=== PATIENT | male | born 1940 | race Caucasian/White ===

== ENCOUNTER 2022-06-27 09:07 | Inpatient (IN) | payer OTHER ==
[~2022-06-27] VITALS: Ht 157.5 cm; Wt 67.6 kg
[2022-06-27 09:34] VITALS: BP 117/73
--- NOTE | 2022-06-27 09:41 | NUR ---
PT AMBULATED TO ER BED 7 WITH DAUGHTER
--- NOTE | 2022-06-27 10:00 | NUR ---
82YO MALE PT BIB DAUGHTER C/O COUGH , SOB AND HOMERO LOWER EXTREMITY EDEMA X1WEEK. REPORTS SUDDEN ONSET AND CHEST PAIN ON COUGH. MOIST NON PRODUCTIVE PRESENT. HOMERO CLEAR LUNG SOUNDS. NOTES INCREASED SOB WHEN IN SUPINE OR PHYSICAL ACTIVITY. PRESENTS W/ NON PITTING EDEMA HOMERO BELOW KNEE. DENIES N/V/D, FEVER OR CHILLS. AMBULATORY USING CANE. PT AAXO4, NO VISIBLE DISTRESS. DAUGHTER AT BEDSIDE. HX: HTN, BPH, SD () SD
--- NOTE | 2022-06-27 10:14 | NUR ---
pt swabbed for covid(katheryn) and flu. handed to lab
--- NOTE | 2022-06-27 10:25 | NUR ---
US AT BEDSIDE
--- NOTE | 2022-06-27 10:46 | NUR ---
XRAY AT BEDSIDE
[2022-06-27 10:53] LABS: ALBUMIN 2.8 g/dL (3.4-5.0); ANION GAP 9.6 (8-16); ASPARTATE AMINOTRANSFERASE 22 U/L (15-37); CARBON DIOXIDE 29.2 mmol/L (21-32); CHLORIDE 100 mmol/L (98-107); CREATININE 0.8 mg/dL (0.6-1.3); GLUCOSE 78 mg/dL (74-106); SODIUM SERUM 136 mmol/L (136-145); TOTAL BILIRUBIN 1.1 mg/dL (0.0-1.0); UREA NITROGEN, BLOOD 28 mg/dL (7-18)
[2022-06-27 10:55] LABS: POTASSIUM 2.8 mmol/L (3.5-5.1)
[2022-06-27] MEDS ORDERED: POTASSIUM CHLORIDE 10 MEQ TABER PO ONE (11:20)
[2022-06-27] MEDS ORDERED: POTASSIUM CHL 40 MEQ/ D5-1/2NS 1,000 ML IV ONE (11:20)
[2022-06-27] MEDS ORDERED: MAG SULF 2000 MG/WATER PREMIX 50 ML IV ONE (11:20)
[2022-06-27] MEDS ORDERED: FUROSEMIDE 40 MG/4 ML VIAL IVP ONE (11:20)
[2022-06-27] MEDS ORDERED: guaiFENesin 20 MG/ML UDC PO ONE (11:20)
[2022-06-27] MEDS ORDERED: guaiFENesin DM 200/20 MG-10 ML 10 ML UDC ONE (11:25)
[2022-06-27] MEDS ORDERED: POTASSIUM CHLORIDE 40 MEQ, LIDOCAINE 1% 25 MG in NACL 0.9% 250 ML IV ONE (11:40)
[2022-06-27] MEDS ORDERED: CYCL-657 PO (12:04)
[2022-06-27] MEDS ORDERED: HYDR-3293 PO (12:04)
[2022-06-27] MEDS ORDERED: TERA10CA PO (12:04)
[2022-06-27] MEDS ORDERED: VITA400T14 PO (12:10)
[2022-06-27 12:46] LABS: EOSINOPHILS # (AUTO) 0.1 K/uL (0-0.4); EOSINOPHILS % (AUTO) 0.9 % (0.0-4.0); HEMATOCRIT 42.9 % (36-52); HEMOGLOBIN 14.4 g/dL (12.0-18.0); LYMPHOCYTES # (AUTO) 1.1 K/uL (2.0-11.5); LYMPHOCYTES % (AUTO) 15.2 % (20.5-51.1); MEAN CORPUSCULAR HEMOGLOBIN 31 pg (27-31); MEAN CORPUSCULAR HGB CONC 34 g/dL (33-37); MEAN CORPUSCULAR VOLUME 91.6 fL (80-94); MONOCYTES # (AUTO) 0.5 K/uL (0.8-1.0); MONOCYTES % (AUTO) 6.4 % (1.7-9.3); NEUTROPHILS # (AUTO) 5.8 K/uL (1.8-7.7); NEUTROPHILS % (AUTO) 77.5 % (42.2-75.2); PLATELET COUNT (AUTO) 137 K/uL (140-450); RED BLOOD CELL COUNT(AUTO) 4.68 MIL/uL (4.20-6.10); RED CELL DISTRIBUTION WIDTH 14.7 % (11.6-13.7); WHITE BLOOD COUNT (AUTO) 7.5 K/uL (4.8-10.8)
[2022-06-27] MEDS ORDERED: methylPREDNISolone SS 125 MG/2 ML VIAL IVP ONE (13:15)
[2022-06-27] MEDS ORDERED: ALBUTEROL SULFATE/IPRATROPIU 3 ML SOL IH ONE (13:15)
[2022-06-27] MEDS ORDERED: DOCUSATE SODIUM 100 MG GELCAP PO PRN (13:55)
[2022-06-27] MEDS ORDERED: ONDANSETRON 4 MG/2 ML VIAL IM/IVP PRN (13:55)
[2022-06-27] MEDS ORDERED: ZOLPIDEM 5 MG TAB PO PRN (13:55)
[2022-06-27] MEDS ORDERED: HYDROcodone/APAP 7.5/325 MG 1 TAB PO PRN (13:55)
[2022-06-27] MEDS ORDERED: CYCLOBENZAPRINE 10 MG TAB PO PRN (14:00)
--- NOTE | 2022-06-27 14:00 | NUR ---
RT AT BEDSIDE
[2022-06-27] MEDS ORDERED: ASPIRIN 325 MG TAB PO SCH (14:10)
[2022-06-27 14:27] LABS: PROTHROMBIN TIME 10.7 secs (10.8-13.4)
--- NOTE | 2022-06-27 14:45 | NUR ---
380ML CLEAR YELLOW URINE COLLECTED FROM URINAL
[2022-06-27 15:18] LABS: CHOL/HDL RATIO 2.4 (1-4.5); FREE T4 (FREE THYROXINE) 1.21 ng/dL (0.76-1.46); MAGNESIUM 2.5 mg/dL (1.8-2.4); PHOSPHORUS 4.1 mg/dL (2.5-4.9); THYROID STIMULATING HORMONE 0.75 uIU/mL (0.34-3.74)
--- NOTE | 2022-06-27 16:15 | NUR ---
pt at rest w/ eyes closed. repositioned, bed at lowest position , bed rails upx2.
--- NOTE | 2022-06-27 16:51 | NUR ---
WRITTEN ORDERS RECEIVED FROM MD WILKINS. ORDERS UPDATED AND CARRIED OUT *NS @20ML/HR
[2022-06-27] MEDS: NACL 0.9% 1,000 ML IV SCH (16:59)
--- NOTE | 2022-06-27 18:57 | NUR ---
700ML CLEAR YELLOW URINE COLLECT AND EMPTIED FROM URINAL
--- NOTE | 2022-06-27 19:13 | NUR ---
REPORT GIVEN TO TIM ROCHA. TRANSFER OF CARE AT THIS TIME
--- NOTE | 2022-06-27 19:27 | NUR ---
PT IS AWAKE AND ALERT. ALL NEEDS MET AT THIS TIME. BED LOCKED IN LOWEST POSITION, SIDE RAILS X2 FOR SAFETY.
--- NOTE | 2022-06-27 19:28 | NUR ---
PT IS AWAKE AND ALERT. ALL NEEDS MET AT THIS TIME. BED LOCKED IN LOWEST POSITION, SIDE RAILS X2 FOR SAFETY.
--- NOTE | 2022-06-27 19:48 | NUR ---
Patient will be admitted to care of . Admited to TELE. Will go to [id number]. Belongings list completed. Report to AJ LOYA.
[2022-06-27 21:00] VITALS: BP 144/81
--- NOTE | 2022-06-27 21:15 | NUR ---
RECEIVED PT FROM ER IN STABLE CONDITION.PLACED ON BED.CALL SYSTEM EXPLAINED AND IN REACH.ORIENTED TO ROOM.TELE MONITOR APPLIED AND SHOWING SR.RESP.UNLABORED W/O2 AT 2L/NC.IVF OF NS STARTED VIA IV LINE IN RT.AC AND INFUSING WELL.HAS HAS NON PRODUCTIVE COUGH.NO C/O CHEST PAIN AT TIME OF ADMISSION.WILL CONT.MONITORING.
[2022-06-27] MEDS: guaiFENesin DM 200/20 MG-10 ML 10 ML UDC PO PRN (21:19)
[2022-06-28] VITALS: BP 150/85
--- NOTE | 2022-06-28 | NUR ---
SLEEPING.NO S/S OF ANY DISTRESS NOTED.HR IS SR.
[2022-06-28 04:00] VITALS: BP 137/78
[2022-06-28] MEDS: guaiFENesin DM 200/20 MG-10 ML 10 ML UDC PO PRN (05:50)
--- NOTE | 2022-06-28 06:08 | NUR ---
HE HAD COUGH LAST NIGHT AND COUGH MED GIVEN ANOTHER DOSE GIVEN THIS AM.NO CP AND OR SOB NOTED.SLEPT WELL.HR AND VS STABLE.
[2022-06-28 06:26] LABS: BASOPHILS % (AUTO) 0.1 % (0.0-2.0); HEMATOCRIT 41.3 % (36-52); HEMOGLOBIN 13.8 g/dL (12.0-18.0); LYMPHOCYTES # (AUTO) 0.4 K/uL (2.0-11.5); MEAN CORPUSCULAR HEMOGLOBIN 31 pg (27-31); MEAN CORPUSCULAR HGB CONC 33 g/dL (33-37); MEAN CORPUSCULAR VOLUME 92.1 fL (80-94); MONOCYTES # (AUTO) 0.2 K/uL (0.8-1.0); MONOCYTES % (AUTO) 2.1 % (1.7-9.3); NEUTROPHILS # (AUTO) 6.8 K/uL (1.8-7.7); PLATELET COUNT (AUTO) 139 K/uL (140-450); RED BLOOD CELL COUNT(AUTO) 4.48 MIL/uL (4.20-6.10); RED CELL DISTRIBUTION WIDTH 14.5 % (11.6-13.7); WHITE BLOOD COUNT (AUTO) 7.4 K/uL (4.8-10.8)
[2022-06-28 06:43] LABS: ANION GAP 13.8 (8-16); CARBON DIOXIDE 26.1 mmol/L (21-32); CHLORIDE 104 mmol/L (98-107); CREATININE 0.7 mg/dL (0.6-1.3); GLUCOSE 162 mg/dL (74-106); POTASSIUM 3.9 mmol/L (3.5-5.1); SODIUM SERUM 140 mmol/L (136-145); UREA NITROGEN, BLOOD 29 mg/dL (7-18)
[2022-06-28 07:30] LABS: NEUTROPHILS % (AUTO) 92.8 % (42.2-75.2)
[2022-06-28 08:00] VITALS: BP 153/82
--- NOTE | 2022-06-28 08:00 | NUR ---
RECEIVED REPORT FROM BIAS BINDING FOLDER FOR CONTINUITY OF CARE. PATIENT ALERT AWAKE ORIENTED X4, NOT IN ANY DISTRESS NOTED. ON 2L NC SATURATING 99%. DENIES PAIN, USES URINALS. ECHO IN PROGRESS. USES, CANE TO AMBULATE. WITH IVF ON GOING @ 20 ML/HR. CALL LIGHT WITHIN REACH. NEEDS ATTENDED. WILL CONTINUE TO MONITOR.
[2022-06-28 08:07] LABS: T4 (THYROXINE) 8.4 ug/dL (4.5-12.0)
[2022-06-28] MEDS: LOSARTAN 50 MG TAB PO SCH (08:37)
[2022-06-28] MEDS: PANTOPRAZOLE 40 MG TABEC PO SCH (08:37)
[2022-06-28] MEDS: FUROSEMIDE 20 MG/2 ML VIAL IVP SCH (08:38)
[2022-06-28 11:08] LABS: APPEARANCE,URINE CLEAR (CLEAR); BILIRUBIN,URINE NEGATIVE (NEGATIVE); BLOOD, URINE NEGATIVE (NEGATIVE); COLOR,URINE YELLOW (YELLOW); LEUKOCYTE ESTERASE ,URINE NEGATIVE (NEGATIVE); NITRITE, URINE NEGATIVE (NEGATIVE); UGLUCOSE 2+ (NEGATIVE)
[2022-06-28 11:13] LABS: RBC,URINE NONE SEEN /HPF (0-5); WBC,URINE 0-5 /HPF (0-5)
[2022-06-28 12:00] VITALS: BP 174/91
--- NOTE | 2022-06-28 12:00 | NUR ---
PATIENT USES URINALS INSTRUCT TO USE CALL LIGHT, FAMILY AT BEDSIDE, DENIES PAIN AND SOB. WILL CONTINUE TO MONITOR.
--- NOTE | 2022-06-28 12:07 | NUR ---
PATIENT HAS BEEN SCREENED AND CATEGORIZED LOW NUTRITION RISK. PATIENT WILL BE SEEN WITHIN 7 DAYS OF ADMISSION. 07/04/[address]
[2022-06-28] MEDS: NACL 0.9% 1,000 ML IV SCH (13:55)
[2022-06-28 16:00] VITALS: BP 138/99
--- NOTE | 2022-06-28 17:53 | NUR ---
PATIENT RESTING IN BED, NO C/O CHEST PAIN. NEEDS ATTENDED. WILL CONTINUE TO MONITOR.
--- NOTE | 2022-06-28 19:08 | NUR ---
report given to the scene shifter for continuity of care. patient in stable condition.
--- NOTE | 2022-06-28 19:09 | NUR ---
RECEIVED REPORT FROM MORNING SHIFT NURSE. PT IS LYING ON THE BED, AOX4, KYRGYZ SPEAKING, ABLE TO VERBALIZE NEEDS AND ABLE TO FOLLOW COMMANDS. PT IS ON 2L NC, AND ON CARDIAC DIET. PT HAS IV ON RIGHT AC GAUGE 20 RUNNING WITH NS AT 20ML/HR. PT SKIN IS INTACT. ALL SAFETY MEASURES IMPLEMENTED. BED IN LOW POSITION, BED WHEELS ON LOCK AND CALL LIGHT WITHIN REACH.
[2022-06-28 20:00] VITALS: BP 130/73
--- NOTE | 2022-06-28 22:00 | NUR ---
CHECKED THE PT, DENIES PAIN AT THIS TIME AND NO S/S OF RESPIRATORY DISTRESS NOTED. ALL SAFETY MEASURES IMPLEMENTED. BED IN LOW POSITION, BED WHEELS ON LOCK AND CALL LIGHT WITHIN REACH.
[2022-06-29] VITALS: BP 156/82
[2022-06-29] MEDS: guaiFENesin DM 200/20 MG-10 ML 10 ML UDC PO PRN ×2 (00:13→06:20)
--- NOTE | 2022-06-29 00:13 | NUR ---
PRN COUGH MEDICATION WAS GIVEN TO PT PER MD ORDER. ALL SAFETY MEASURES IMPLEMENTED. BED IN LOW POSITION, BED WHEELS ON LOCK AND CALL LIGHT WITHIN REACH.
--- NOTE | 2022-06-29 02:00 | NUR ---
PT IS SLEEPING. CHEST RISE NAD FALL SYMMETRICALLY NOTED. RESPIRATION IS EVEN AND UNLABORED. ALL SAFETY MEASURES IMPLEMENTED. BED IN LOW POSITION, BED WHEELS ON LOCKED AND CALL LIGHT WITHIN REACH.
--- NOTE | 2022-06-29 03:27 | NUR ---
NOTIFIED DR. MARTÍNEZ REGARDING OF PT'S BP-166/81 WITH PULSE OF 95. WILL WAIT FOR MD'S ORDER.
[2022-06-29 04:00] VITALS: BP 166/81
--- NOTE | 2022-06-29 04:32 | NUR ---
DR. MARTÍNEZ ORDER HYDRALAZINE 25MG PO PRN EVERY 6HRS. ORDER WAS MADE AND CARRIED OUT
[2022-06-29] MEDS ORDERED: hydrALAZINE 25 MG TAB PO PRN (04:35)
--- NOTE | 2022-06-29 04:56 | NUR ---
PRN HYDRALAZINE WAS GIVEN TO PT DUE TO BP LOWEST 166/81 AND HIGHEST OF 173/98 WITH PULSE OF 96. ALL SAFETY MEASURES IMPLEMENTED. BED IN LOW POSITION, BED WHEELS ON LOCK AND CALL LIGHT WITHIN REACH.
--- NOTE | 2022-06-29 05:59 | NUR ---
PT CURRENT BP- 152/92 WITH PULSE OF 85. PT DENIES PAIN AT THIS TIME. NO S/S OF RESPIRATORY DISTRESS NOTED. ALL SAFETY MEASURES IMPLEMENTED. BED IN LOW POSITION, BED WHEELS ON LOCK AND CALL LIGHT WITHIN REACH.
[2022-06-29 07:16] LABS: BASOPHILS % (AUTO) 0.1 % (0.0-2.0); EOSINOPHILS % (AUTO) 0.5 % (0.0-4.0); HEMATOCRIT 40.9 % (36-52); HEMOGLOBIN 13.9 g/dL (12.0-18.0); LYMPHOCYTES # (AUTO) 0.7 K/uL (2.0-11.5); MEAN CORPUSCULAR HEMOGLOBIN 31 pg (27-31); MEAN CORPUSCULAR HGB CONC 34 g/dL (33-37); MEAN CORPUSCULAR VOLUME 91.7 fL (80-94); MONOCYTES # (AUTO) 0.5 K/uL (0.8-1.0); MONOCYTES % (AUTO) 5.4 % (1.7-9.3); NEUTROPHILS # (AUTO) 7.8 K/uL (1.8-7.7); PLATELET COUNT (AUTO) 114 K/uL (140-450); RED BLOOD CELL COUNT(AUTO) 4.46 MIL/uL (4.20-6.10); RED CELL DISTRIBUTION WIDTH 14.6 % (11.6-13.7)
--- NOTE | 2022-06-29 07:24 | NUR ---
PT IS STABLE. ENDORSED PT TO MORNING SHIFT NURSE FOR CONTINUITY OF CARE.
[2022-06-29 07:32] LABS: CARBON DIOXIDE 28.2 mmol/L (21-32); CHLORIDE 105 mmol/L (98-107); CREATININE 0.6 mg/dL (0.6-1.3); GLUCOSE 89 mg/dL (74-106); POTASSIUM 3.2 mmol/L (3.5-5.1); SODIUM SERUM 142 mmol/L (136-145); UREA NITROGEN, BLOOD 32 mg/dL (7-18)
--- NOTE | 2022-06-29 07:37 | NUR ---
GOT REPORT FROM THE NIGHT NURSE, PT SLEEPING,IV IS INFUSING ORDERED.NO SOB. [id number]
[2022-06-29 08:00] VITALS: BP 140/77
[2022-06-29 08:14] LABS: LYMPHOCYTES % (AUTO) 7.2 % (20.5-51.1); NEUTROPHILS % (AUTO) 86.8 % (42.2-75.2)
[2022-06-29] MEDS: LOSARTAN 50 MG TAB PO SCH (08:36)
[2022-06-29] MEDS: PANTOPRAZOLE 40 MG TABEC PO SCH (08:36)
[2022-06-29] MEDS: FUROSEMIDE 20 MG/2 ML VIAL IVP SCH (08:36)
[2022-06-29] MEDS: POTASSIUM CHLORIDE 10 MEQ TABER PO PRN (09:25)
[2022-06-29] MEDS ORDERED: POTASSIUM CHLORIDE 10 MEQ TABER PO SCH (10:21)
[2022-06-29] MEDS: BLOOD GLUCOSE MONITORING 1 DEV DEV FS SCH ×3 (11:38→20:55)
[2022-06-29 12:00] VITALS: BP 145/75
[2022-06-29] MEDS: NACL 0.9% 1,000 ML IV SCH (14:13)
[2022-06-29] MEDS: ACETAMINOPHEN 325 MG TAB PO PRN (15:32)
--- NOTE | 2022-06-29 15:37 | NUR ---
PT TMP 101.7 ORALLY , GIVEN TYLENOL ORDERED.[id number]
[2022-06-29 16:00] VITALS: BP 150/78
--- NOTE | 2022-06-29 17:42 | NUR ---
PT'S TEMP IS 98.6 ORAL AFTER TYLENOL. [id number]
--- NOTE | 2022-06-29 19:25 | NUR ---
RECEIVED REPORT FROM MORNING SHIFT NURSE. PT IS LYING ON THE BED, WATCHING TV. PT IS AOX4, FAROESE SPEAKING AMBULATORY WITH ASSIST & USES CANE, ABLE TO VERBALIZE NEEDS AND ABLE TO FOLLOW COMMANDS. PT IS ON 2L NC AND ON CARDIAC DIET. PT HAS IV ON RIGHT AC GAUGE 20 RUNNING WITH NS AT 20ML/HR. PT DENIES PAIN AT THIS TIME. NO S/S OF RESPIRATORY DISTRESS NOTED. PT SKIN IS INTACT. ALL SAFETY MEASURES IMPLEMENTED. BED IN LOW POSITION, BED WHEELS ON LOCK AND CALL LIGHT WITHIN REACH.
[2022-06-29 20:00] VITALS: BP 130/89
--- NOTE | 2022-06-29 20:55 | NUR ---
PT BLOOD GLUCOSE IS 116. NO INSULIN COVERAGE NEEDED. ALL SAFETY MEASURES IMPLEMENTED. BED IN LOW POSITION, BED WHEELS ON LOCK AND CALL LIGHT WITHIN REACH.
--- NOTE | 2022-06-29 22:00 | NUR ---
PT WAS GIVEN WARM BLANKET PER PT REQUEST. PT DENIES PAIN AT THIS TIME. NO S/S OF RESPIRATORY DISTRESS NOTED. ALL SAFETY MEASURES IMPLEMENTED. BED IN LOW POSITION, BED WHEELS ON LOCK AND CALL LIGHT WITHIN REACH.
[2022-06-30] VITALS (7 sets, daily range): BP systolic 93–147; BP diastolic 47–81
--- NOTE | 2022-06-30 | NUR ---
PT IS SLEEPING. CHEST RISE AND FALL SYMMETRICALLY NOTED. RESPIRATION IS EVEN AND UNLABORED. ALL SAFETY MEASURES IMPLEMENTED. BED IN LOW POSITION, BED WHEELS LOCK AND CALL LIGHT WITHIN REACH.
--- NOTE | 2022-06-30 02:00 | NUR ---
CHECKED PT, STILL SLEEPING. CHEST RISE AND FALL SYMMETRICALLY NOTED. RESPIRATION IS EVEN AND UNLABORED. ALL SAFETY MEASURES IMPLEMENTED. BED IN LOW POSITION, BED WHEELS ON LOCK AND CALL LIGHT WITHIN REACH.
--- NOTE | 2022-06-30 04:00 | NUR ---
MORNING CARE WAS DONE TO PT. CHANGED GOWN, LINENS AND CHUCKS. PT DENIES PAIN AT THIS TIME. NO S/S OF RESPIRATORY DISTRESS NOTED. ALL SAFETY MEASURES IMPLEMENTED. BED IN LOW POSITION, BED WHEELS ON LOCK AND CALL LIGHT WITHIN REACH.
[2022-06-30] MEDS: BLOOD GLUCOSE MONITORING 1 DEV DEV FS SCH ×4 (06:36→21:59)
--- NOTE | 2022-06-30 06:36 | NUR ---
PT BLOOD GLUCOSE IS 79. NO INSULIN COVERAGE NEEDED.
[2022-06-30 07:17] LABS: BASOPHILS % (AUTO) 0.4 % (0.0-2.0); EOSINOPHILS # (AUTO) 0.1 K/uL (0-0.4); EOSINOPHILS % (AUTO) 1.4 % (0.0-4.0); HEMATOCRIT 41.2 % (36-52); HEMOGLOBIN 13.8 g/dL (12.0-18.0); LYMPHOCYTES # (AUTO) 1.1 K/uL (2.0-11.5); LYMPHOCYTES % (AUTO) 14.6 % (20.5-51.1); MEAN CORPUSCULAR HEMOGLOBIN 31 pg (27-31); MEAN CORPUSCULAR HGB CONC 34 g/dL (33-37); MEAN CORPUSCULAR VOLUME 92.1 fL (80-94); MONOCYTES # (AUTO) 0.4 K/uL (0.8-1.0); MONOCYTES % (AUTO) 5.4 % (1.7-9.3); NEUTROPHILS # (AUTO) 5.8 K/uL (1.8-7.7); NEUTROPHILS % (AUTO) 78.2 % (42.2-75.2); PLATELET COUNT (AUTO) 105 K/uL (140-450); RED BLOOD CELL COUNT(AUTO) 4.48 MIL/uL (4.20-6.10); RED CELL DISTRIBUTION WIDTH 14.5 % (11.6-13.7); WHITE BLOOD COUNT (AUTO) 7.4 K/uL (4.8-10.8)
--- NOTE | 2022-06-30 07:18 | NUR ---
PT IS STABLE. ENDORSED PT TO MORNING SHIFT NURSE FOR CONTINUITY OF CARE.
[2022-06-30 07:21] LABS: ANION GAP 9.9 (8-16); CARBON DIOXIDE 27.3 mmol/L (21-32); CHLORIDE 106 mmol/L (98-107); CREATININE 0.6 mg/dL (0.6-1.3); GLUCOSE 84 mg/dL (74-106); POTASSIUM 3.2 mmol/L (3.5-5.1); SODIUM SERUM 140 mmol/L (136-145); UREA NITROGEN, BLOOD 34 mg/dL (7-18)
--- NOTE | 2022-06-30 07:39 | NUR ---
GOT REPORT FROM THE NIGHT NURSE PT SLEEPING NO SOB.[id number]
[2022-06-30] MEDS: FUROSEMIDE 20 MG/2 ML VIAL IVP SCH (08:28)
[2022-06-30] MEDS: PANTOPRAZOLE 40 MG TABEC PO SCH (08:29)
[2022-06-30] MEDS: POTASSIUM CHLORIDE 10 MEQ TABER PO PRN (08:29)
[2022-06-30] MEDS: LOSARTAN 50 MG TAB PO SCH (08:29)
[2022-06-30] MEDS ORDERED: TERAZOSIN 5 MG CAP PO SCH (09:00)
[2022-06-30] MEDS ORDERED: hydroCHLOROthiazide 25 MG TAB PO SCH (09:00)
--- NOTE | 2022-06-30 11:06 | NUR ---
started iv with 24G on the right [email or web address]
[2022-06-30] MEDS: PIPERACILLIN/TAZOBACTAM 3.375 GM in DEXTROSE 5% 50 ML IV SCH ×2 (11:17→18:00)
[2022-06-30] MEDS: NACL 0.9% 1,000 ML IV SCH (13:57)
[2022-06-30] MEDS ORDERED: MIDODRINE 5 MG TAB PO SCH (16:36)
--- NOTE | 2022-06-30 17:00 | NUR ---
DISCHARGE PLANNING PATIENT IS AN 82 YEAR OLD MALE ADMITTED TO THE [facility]/ED ON 06/27/2022 DUE TO CHEST PAIN/DYSPNEA. SW MEET WITH PATIENT AND HIS DAUGHTERS AT BEDSIDE TO DISCUSS AND GATHER HIS COLLATERAL INFORMATION. PATIENT WAS AWAKE AND ALERT BUT RESTING THEREFORE; HIS DAUGHTER WAS ABLE TO PROVIDE HIS INFORMATION. PATIENT'S DAUGHTER REPORTED THAT PATIENT IS LIVING AT HOME WITH HIS AND HER FAMILY RICHARD IN HER MOBILE HOME IN [facility]. SHE ALSO REPORTED THAT PATIENT DO NOT HAVE ADVANCE DIRECTIVES IN PLACE ADVANCE DIRECTIVES, AND DECLINED INF. FORMS PROVIDED BY SW. PER PATIENT AND HIS DAUGHTER SHE IS HIS EMERGENCY CONTACT AND ALSO HIS MEDICAL DECISION MAKER. PER PATIENT'S DAUGHTER HE HAS DR. SHAN WONG HIS PCP. PATIENT'S DAUGHTER REPORTED THAT PATIENT HAS NOT SEEN PCP SINCE 3-4 MONTHS AGO AND HAS AN UPCOMING APPOINTMENT FOR 07/02/2022 AT 9:00AM. HOWEVER SHE WILL BE CHANGING AND RE-SCHEDULING FOR THAT APPOINTMENT TO HAPPEN AFTER PATIENT IS DISCHARGE. PER PATIENT'S DAUGHTER RICHARD PATIENT HAS NO ISSUES GETTING OR TAKING HIS MEDICATIONS AND SHE PICKS THEM UP FOR HIM AT THE [facility] IN [facility]. PATIENT'S DAUGHTER REPORTED THAT PATIENT HAS ONLY A CANE HIS DME AT HOME. WHEN DISCUSSING PATIENT'S DISCHARGE HE STATED WANTING TO GO BACK HOME WITH HIS FAMILY AND THE ASSISTANCE FROM HIS DAUGHTERS FOR TRANSPORTATION. PER PATIENT SHE IS OPEN FOR HOME HEALTH WITH NO PREFERENCES IF THE [facility]/MD RECOMMENDS. STEPHON/[facility] WILL FOLLOW UP NEEDED.
--- NOTE | 2022-06-30 17:10 | NUR ---
RECEIVED PT FROM TELE BED 107B DUE TO HYPOTENSIVE. PT IS AWAKE AND ALERT WELL ORIENRTED UKRAINIAN SPEAKING.ADMITED TO ICU BED 1 . CONNECT TO MONITOR BP 122/[address] PT IN BED MAKE HIM COMFORTABLE CALL LIGHT IN REACH.PT. DENIED PAIN AT THE TIME.
--- NOTE | 2022-06-30 17:43 | NUR ---
TRANSFERRED TO ICU GAVE REPORT. AND PT WAS AWAK.[id number]
--- NOTE | 2022-06-30 18:45 | NUR ---
AWAKE ALERT VOID IN URENAL 200ML REFUSED TO EAT DINNER , SAID MAY BE LATER.
--- NOTE | 2022-06-30 19:16 | NUR ---
GIVE REPORT TO CELESTINO FOR CONTINUITY CARE .
--- NOTE | 2022-06-30 20:45 | NUR ---
RECEIVED THE PATIENT FROM WAREHOUSE PROCESSOR KAYLYN. PATIENT AWAKE , ALERT, ORIENTEDX3, SAMI SPEAKING ONLY WITH MINIMAL [place]. PATIENT FAMILY AT THE BEDSIDE AN AIDE WITH THE TRANSLATION.PATIENT DENIES PAIN, PALPITATIONS AND DIZZINESS AT THIS TIME. PT NOT ON ANY DISTRESS. FALL PRECAUTION IMPLEMENTED. INSTRUCTED NOT TO GET OUT OF BED WITHOUT ASSISTANCE. PT VERBALIZED UNDERSTANDING. CALL LIGHT WITHIN REACH. WILL CONTINUE POC AND MONITORING.
--- NOTE | 2022-06-30 22:00 | NUR ---
PT ASKED FOR COFFEE. DECAFFEINATED COFFEE PROVIDED.
[2022-07-01] VITALS: BP 97/61
--- NOTE | 2022-07-01 | NUR ---
ADMINISTERED SCHEDULED ANTIBIOTIC ORDERED.
[2022-07-01] MEDS: PIPERACILLIN/TAZOBACTAM 3.375 GM in DEXTROSE 5% 50 ML IV SCH ×5 (00:22→23:16)
--- NOTE | 2022-07-01 02:00 | NUR ---
PATIENT WOKE UP AND USE THE URINAL. ASSISTED TO STAND UP AT THE BEDSIDE AND HELP BACK IN BED.
[2022-07-01 04:00] VITALS: BP 107/65
--- NOTE | 2022-07-01 04:00 | NUR ---
PT ASLEEP AT THIS TIME. VISIBLE CHEST RISE AND FALL NOTED. NO COMPLAIN OF PAIN AT THIS TIME AND NOT ON ANY DISTRESS. SAFETY MEASURES IN PLACED.
[2022-07-01] MEDS: BLOOD GLUCOSE MONITORING 1 DEV DEV FS SCH ×4 (06:36→20:01)
--- NOTE | 2022-07-01 06:57 | NUR ---
NO ACUTE EVENT THROUGHOUT THE NIGHT. PATIENT STABLE AND NOT ON ANY DISTRESS. NO COMPLAIN AT THIS TIME. ALL NEEDS ATTENDED. WILL ENDORSE THE PT TO THE ONCOMING NURSE FOR CONTINUITY OF CARE.
--- NOTE | 2022-07-01 07:02 | NUR ---
ENDORSED PATIENT TO DAY NURSE FOR CONTINUITY OF CARE. PATIENT IS STABLE.
[2022-07-01 07:24] LABS: BASOPHILS % (AUTO) 0.2 % (0.0-2.0); EOSINOPHILS # (AUTO) 0.1 K/uL (0-0.4); EOSINOPHILS % (AUTO) 2.2 % (0.0-4.0); HEMATOCRIT 38.9 % (36-52); HEMOGLOBIN 13.2 g/dL (12.0-18.0); LYMPHOCYTES % (AUTO) 15.8 % (20.5-51.1); MEAN CORPUSCULAR HEMOGLOBIN 31 pg (27-31); MEAN CORPUSCULAR HGB CONC 34 g/dL (33-37); MEAN CORPUSCULAR VOLUME 91.5 fL (80-94); MONOCYTES # (AUTO) 0.4 K/uL (0.8-1.0); MONOCYTES % (AUTO) 6.6 % (1.7-9.3); NEUTROPHILS # (AUTO) 4.7 K/uL (1.8-7.7); NEUTROPHILS % (AUTO) 75.2 % (42.2-75.2); PLATELET COUNT (AUTO) 107 K/uL (140-450); RED BLOOD CELL COUNT(AUTO) 4.25 MIL/uL (4.20-6.10); RED CELL DISTRIBUTION WIDTH 14.6 % (11.6-13.7); WHITE BLOOD COUNT (AUTO) 6.2 K/uL (4.8-10.8)
--- NOTE | 2022-07-01 07:33 | NUR ---
GOT REPORT FROM THE NIGHT NURSE, PT IS AWAKE NO SOB.[id number]
[2022-07-01 08:00] VITALS: BP 105/60
[2022-07-01] MEDS: PANTOPRAZOLE 40 MG TABEC PO SCH (08:15)
[2022-07-01 08:23] LABS: ANION GAP 14.2 (8-16); CARBON DIOXIDE 25.7 mmol/L (21-32); CHLORIDE 103 mmol/L (98-107); CREATININE 0.7 mg/dL (0.6-1.3); GLUCOSE 92 mg/dL (74-106); SODIUM SERUM 140 mmol/L (136-145); UREA NITROGEN, BLOOD 30 mg/dL (7-18)
[2022-07-01 08:47] LABS: POTASSIUM 2.9 mmol/L (3.5-5.1)
[2022-07-01] MEDS: POTASSIUM CHLORIDE 10 MEQ TABER PO PRN (09:11)
[2022-07-01] MEDS ORDERED: KCL 20 MEQ/WATER INJ PREMIX 200 ML IV SCH (10:00)
[2022-07-01 12:00] VITALS: BP 116/63
[2022-07-01] MEDS: INSULIN LISPRO SLIDING SCALE 100 UNITS/ML VIAL SUBQ PRN ×2 (12:08→18:11)
[2022-07-01 16:00] VITALS: BP 126/71
--- NOTE | 2022-07-01 19:30 | NUR ---
Received pt in bed awake, alert and oriented x 4. family members at the bedside. denies pain. denies shortness of breath. skin warm and dry to touch. safety precaution in place, call light in reach.
[2022-07-01 20:00] VITALS: BP 136/66
[2022-07-01] MEDS: ACETAMINOPHEN 325 MG TAB PO PRN (22:46)
[2022-07-02] VITALS: BP 119/64
--- NOTE | 2022-07-02 | NUR ---
VITAL SIGNS TAKEN AND DOCUMENTED. NO DISTRESS NOTED. CALL LIGHT IN REACH.
[2022-07-02 04:00] VITALS: BP 151/83
--- NOTE | 2022-07-02 04:00 | NUR ---
VITAL SIGNS TAKEN AND DOCUMENTED. AM CARE RENDERED. CALL LIGHT WITHIN REACH.
[2022-07-02] MEDS: PIPERACILLIN/TAZOBACTAM 3.375 GM in DEXTROSE 5% 50 ML IV SCH (05:02)
[2022-07-02] MEDS: BLOOD GLUCOSE MONITORING 1 DEV DEV FS SCH ×2 (06:30→11:30)
--- NOTE | 2022-07-02 06:30 | NUR ---
PATIENT IS ASLEEP. NO DISTRESS NOTED. ALL NEEDS ATTENDED TO. SAFETY PRECAUTIONS MAINTAINED DURING THE SHIFT, CALL LIGHT REMAINED WITHIN REACH.
--- NOTE | 2022-07-02 07:30 | NUR ---
RECEIVED REPORT FROM BENCH ASSEMBLER ELECTRICAL NURSE FOR CONTINUITY OF CARE. PT IN BED SLEEPING AT THIS TIME. RESPIRATIONS ARE EVEN AND UNLABORED. PT IS ON 2L O2 VIA NC. PER BENCH ASSEMBLER ELECTRICAL NURSE, PT TAKES OFF NC DESIRED. PT IS ALERT AND ORIENTED X4, ABLE TO FOLLOW COMMANDS, ABLE TO VERBALIZE NEEDS. MACEDONIAN SPEAKING. PT IS ON CARDIAC DIET, TOLERATING WELL. PT IS CONTINENT OF BOWEL AND BLADDER. ABLE TO AMBULATE WITH ASSISTANCE OF CANE. PT HAS IV TO L HAND 24G AND TO L AC 22G. SKIN IS WARM, DRY, AND INTACT. CALL LIGHT WITHIN REACH. ALL SAFETY MEASURES IN PLACE. WILL CONTINUE TO MONITOR.
[2022-07-02 08:00] VITALS: BP 130/70
--- NOTE | 2022-07-02 08:00 | NUR ---
Patient's Plan of Care was discussed and reviewed with NELA: TRICE
[2022-07-02 08:20] LABS: ANION GAP 12.5 (8-16); CHLORIDE 107 mmol/L (98-107); CREATININE 0.7 mg/dL (0.6-1.3); GLUCOSE 105 mg/dL (74-106); POTASSIUM 3.5 mmol/L (3.5-5.1); SODIUM SERUM 142 mmol/L (136-145)
[2022-07-02 08:23] LABS: BASOPHILS % (AUTO) 0.4 % (0.0-2.0); EOSINOPHILS # (AUTO) 0.1 K/uL (0-0.4); EOSINOPHILS % (AUTO) 2.6 % (0.0-4.0); HEMOGLOBIN 12.7 g/dL (12.0-18.0); LYMPHOCYTES # (AUTO) 1.2 K/uL (2.0-11.5); LYMPHOCYTES % (AUTO) 22.7 % (20.5-51.1); MEAN CORPUSCULAR HEMOGLOBIN 31 pg (27-31); MEAN CORPUSCULAR HGB CONC 34 g/dL (33-37); MEAN CORPUSCULAR VOLUME 91.5 fL (80-94); MONOCYTES # (AUTO) 0.4 K/uL (0.8-1.0); NEUTROPHILS # (AUTO) 3.4 K/uL (1.8-7.7); NEUTROPHILS % (AUTO) 66.3 % (42.2-75.2); PLATELET COUNT (AUTO) 115 K/uL (140-450); RED BLOOD CELL COUNT(AUTO) 4.04 MIL/uL (4.20-6.10); RED CELL DISTRIBUTION WIDTH 14.5 % (11.6-13.7); WHITE BLOOD COUNT (AUTO) 5.1 K/uL (4.8-10.8)
[2022-07-02 08:36] LABS: UREA NITROGEN, BLOOD 34 mg/dL (7-18)
[2022-07-02] MEDS: PANTOPRAZOLE 40 MG TABEC PO SCH (08:42)
--- NOTE | 2022-07-02 08:46 | NUR ---
ADMINISTERED SCHEDULED MEDICATION. EDUCATED PT ON MEDS ADMINISTERED. ANSWERED ALL QUESTIONS. PT TOLERATED WELL.
--- NOTE | 2022-07-02 12:18 | NUR ---
DISCHARGE ORDER IN PLACE. WENT OVER DISCHARGE WITH PT. ANSWERED ALL QUESTIONS. PT SIGNED ALL PAPERWORK. REMOVED IV. IV CATHETER INTACT. PT DISCHARGED HOME, WITH FAMILY. ALL BELONGINGS TAKEN UPON DISCHARGE.
== END 2022-07-02 12:15 | disposition home or self-care (01) | DRG 871 ==
LOC: MED 09:07 → MTU 14:00 → MIC 06-30 17:28 → MTU 06-30 20:54
PROVIDERS: ADMIT Family Medicine; ATTEND Family Medicine
DX: A41.9 Sepsis, unspecified organism (principal); E43 Unspecified severe protein-calorie malnutrition; I50.43 Acute on chronic combined systolic (congestive) and diastolic (congestive) heart failure; J96.00 Acute respiratory failure, unspecified whether with hypoxia or hypercapnia; I11.0 Hypertensive heart disease with heart failure; J06.9 Acute upper respiratory infection, unspecified; E83.51 Hypocalcemia; J41.1 Mucopurulent chronic bronchitis; Z20.822 Contact with and (suspected) exposure to COVID-19; E11.9 Type 2 diabetes mellitus without complications; E87.6 Hypokalemia; N40.0 Benign prostatic hyperplasia without lower urinary tract symptoms; I25.2 Old myocardial infarction; Z79.4 Long term (current) use of insulin; Z90.49 Acquired absence of other specified parts of digestive tract; Z68.27 Body mass index [BMI] 27.0-27.9, adult
CPT/HCPCS: 36415; 71045; 80048; 80053; 81001; 82150; 82948; 83036; 83690; 83735; 83880; 84100; 84436; 84439; 84443; 84479; 84484; 85025; 85610; 85730; 87081; 93005; 93970; 94640; 96365; 96366; 96375; 97116; 97163-GP; 99285; J1940; J2001; J2543; J2930; J3475; J3480; J7030; J7060; Q0092

== ENCOUNTER 2022-07-18 11:08 | Inpatient (IN) | payer OTHER ==
[~2022-07-18] VITALS: Ht 132.1 cm; Wt 63.0 kg
[~2022-07-18 11:08] MED LIST: CYCL-657 PO; TERA10CA PO; VITA400T14 PO
[2022-07-18 11:14] VITALS: BP 160/92
--- NOTE | 2022-07-18 11:33 | NUR ---
julieta from home for n,v,d. was just d/c from hospital. gen weakness. no facial droop. no slurred speech. - arm drift. denies chest pain, dizzniness, no active vomit, fever, chills, sob. aaox4. resp even and nonlabored. on cv monitor. pending orders
--- NOTE | 2022-07-18 11:49 | NUR ---
ekg done. labs drawn
[2022-07-18 12:10] LABS: ALBUMIN 2.9 g/dL (3.4-5.0); ANION GAP 14.9 (8-16); ASPARTATE AMINOTRANSFERASE 13 U/L (15-37); CARBON DIOXIDE 25.3 mmol/L (21-32); CHLORIDE 104 mmol/L (98-107); CREATININE 0.8 mg/dL (0.6-1.3); GLUCOSE 108 mg/dL (74-106); POTASSIUM 3.2 mmol/L (3.5-5.1); SODIUM SERUM 141 mmol/L (136-145); TOTAL BILIRUBIN 1.9 mg/dL (0.0-1.0); UREA NITROGEN, BLOOD 22 mg/dL (7-18)
[2022-07-18 12:31] LABS: BASOPHILS % (AUTO) 0.5 % (0.0-2.0); EOSINOPHILS # (AUTO) 0.2 K/uL (0-0.4); EOSINOPHILS % (AUTO) 2.9 % (0.0-4.0); HEMATOCRIT 38.8 % (36-52); HEMOGLOBIN 13.3 g/dL (12.0-18.0); LYMPHOCYTES # (AUTO) 1.8 K/uL (2.0-11.5); MEAN CORPUSCULAR HEMOGLOBIN 31 pg (27-31); MEAN CORPUSCULAR HGB CONC 34 g/dL (33-37); MEAN CORPUSCULAR VOLUME 89.8 fL (80-94); MONOCYTES # (AUTO) 1.1 K/uL (0.8-1.0); MONOCYTES % (AUTO) 16.6 % (1.7-9.3); NEUTROPHILS # (AUTO) 3.4 K/uL (1.8-7.7); PLATELET COUNT (AUTO) 258 K/uL (140-450); RED BLOOD CELL COUNT(AUTO) 4.32 MIL/uL (4.20-6.10); RED CELL DISTRIBUTION WIDTH 13.8 % (11.6-13.7); WHITE BLOOD COUNT (AUTO) 6.5 K/uL (4.8-10.8)
[2022-07-18 12:41] LABS: APPEARANCE,URINE CLEAR (CLEAR); BILIRUBIN,URINE 2+ (NEGATIVE); BLOOD, URINE NEGATIVE (NEGATIVE); COLOR,URINE YELLOW (YELLOW); LEUKOCYTE ESTERASE ,URINE NEGATIVE (NEGATIVE); NITRITE, URINE NEGATIVE (NEGATIVE); UGLUCOSE NEGATIVE (NEGATIVE)
--- NOTE | 2022-07-18 13:12 | NUR ---
swabbed for covid. sent to lab
--- NOTE | 2022-07-18 13:19 | NUR ---
pt made aware he is getting admitted per md order and agreed. states takes home meds but unable to recall names. will try to call daughter
[2022-07-18] MEDS ORDERED: KCL 20 MEQ/WATER INJ PREMIX 100 ML IV ONE (13:25)
[2022-07-18] MEDS ORDERED: ZOLPIDEM 10 MG TAB PO PRN (13:35)
[2022-07-18] MEDS ORDERED: ONDANSETRON 4 MG/2 ML VIAL IVP PRN (13:35)
[2022-07-18] MEDS ORDERED: DOCUSATE SODIUM 100 MG GELCAP PO PRN (13:35)
[2022-07-18] MEDS ORDERED: ACETAMINOPHEN 325 MG TAB PO PRN (13:35)
[2022-07-18] MEDS ORDERED: LORazepam 2 MG/ML VIAL IVP PRN (13:35)
[2022-07-18] MEDS ORDERED: MORPHINE SULFATE 2 MG/ML SYR IVP PRN (13:35)
[2022-07-18] MEDS ORDERED: CARV3.12 PO (13:41)
[2022-07-18] MEDS ORDERED: TERA5CAP8 PO (13:41)
--- NOTE | 2022-07-18 13:42 | NUR ---
called daughter estrella for home meds list. med rec done
--- NOTE | 2022-07-18 14:07 | NUR ---
iv k+ initiated. aao x4. resp even and nonlabored. vss @ this time. pending admission
--- NOTE | 2022-07-18 15:40 | NUR ---
resting in [facility]. no n/v. iv k+ running well and tolerated well. vss. pending admission
--- NOTE | 2022-07-18 18:26 | NUR ---
k+ drip completed. no n/v. resting comfortably. vss. resp even and nonlabored
--- NOTE | 2022-07-18 19:14 | NUR ---
report given to greg walter
[2022-07-18] MEDS: NACL 0.9% 1,000 ML IV SCH (19:20)
--- NOTE | 2022-07-18 19:45 | NUR ---
Patient will be admitted to care of Dr. Nichols. Admited to med surg. Will go to room 104B. Belongings list completed. Report to AJ Silverman.
[2022-07-18 23:15] VITALS: BP 136/62
[2022-07-18 23:47] VITALS: BP 132/72
--- NOTE | 2022-07-19 01:34 | NUR ---
PATIENT STABLE VITALS SIGNS IN NORMAL LIMITS SEEMS CONFUSE NOT COMPLAINING OF PAIN AT THIS TIME
[2022-07-19 03:44] VITALS: BP 132/61
--- NOTE | 2022-07-19 06:55 | NUR ---
PATIENT STABLE VITALS SIGNS IN NORMAL LIMITS NOT COMPLAINING OF PAIN AT THIS TIME
--- NOTE | 2022-07-19 07:12 | NUR ---
RECEIVED PT FROM AJ PEREIRA FOR CONTINUITY OF CARE. PT AWAKE IN BED. RESPIRATIONS EVEN AND UNLABORED, ON 2L NC. NO DISTRESS NOTED. DENIES PAIN. SKIN INTACT, WARM AND DRY TO TOUCH. IV SITE ON LFA 22G, INFUSING IVF. CALL LIGHT WITHIN REACH. SAFETY PRECAUTIONS IN PLACE.
[2022-07-19 07:17] LABS: BASOPHILS % (AUTO) 0.3 % (0.0-2.0); EOSINOPHILS # (AUTO) 0.3 K/uL (0-0.4); HEMATOCRIT 36.2 % (36-52); HEMOGLOBIN 12.4 g/dL (12.0-18.0); LYMPHOCYTES # (AUTO) 1.8 K/uL (2.0-11.5); LYMPHOCYTES % (AUTO) 32.5 % (20.5-51.1); MEAN CORPUSCULAR HEMOGLOBIN 31 pg (27-31); MEAN CORPUSCULAR HGB CONC 34 g/dL (33-37); MEAN CORPUSCULAR VOLUME 89.8 fL (80-94); MONOCYTES # (AUTO) 0.9 K/uL (0.8-1.0); NEUTROPHILS # (AUTO) 2.5 K/uL (1.8-7.7); NEUTROPHILS % (AUTO) 45.4 % (42.2-75.2); PLATELET COUNT (AUTO) 238 K/uL (140-450); RED BLOOD CELL COUNT(AUTO) 4.03 MIL/uL (4.20-6.10); RED CELL DISTRIBUTION WIDTH 13.7 % (11.6-13.7); WHITE BLOOD COUNT (AUTO) 5.4 K/uL (4.8-10.8)
[2022-07-19 07:23] LABS: ANION GAP 13.5 (8-16); CARBON DIOXIDE 24.6 mmol/L (21-32); CHLORIDE 103 mmol/L (98-107); CREATININE 0.6 mg/dL (0.6-1.3); GLUCOSE 65 mg/dL (74-106); POTASSIUM 3.1 mmol/L (3.5-5.1); SODIUM SERUM 138 mmol/L (136-145); UREA NITROGEN, BLOOD 19 mg/dL (7-18)
[2022-07-19 08:00] VITALS: BP 147/87
[2022-07-19 08:36] LABS: EOSINOPHILS % (AUTO) 5.1 % (0.0-4.0); MONOCYTES % (AUTO) 16.7 % (1.7-9.3)
[2022-07-19] MEDS: TERAZOSIN 1 MG CAP PO SCH (09:01)
[2022-07-19] MEDS: POTASSIUM CHLORIDE 10 MEQ TABER PO PRN (09:01)
--- NOTE | 2022-07-19 09:04 | NUR ---
ADMINISTERED DUE MEDS. K-DUE GIVEN FOR POTASSIUM 3.1. PT TOLERATED WELL.
[2022-07-19] MEDS: MAG SULF 2000 MG/WATER PREMIX 50 ML IV PRN (10:32)
--- NOTE | 2022-07-19 10:32 | NUR ---
PT CHECKED AND SEEN BY DR. MARTÍNEZ. RECEIVED ORDER FOR CT ABDOMEN. NEW ORDER PLACED.
[2022-07-19] MEDS: NACL 0.9% 1,000 ML IV SCH (12:20)
--- NOTE | 2022-07-19 13:58 | NUR ---
IV LEAKING. INSERTED NEW IV. NOW, LAC 18G. IVF RESUMED.
[2022-07-19 16:00] VITALS: BP 143/88
--- NOTE | 2022-07-19 19:39 | NUR ---
ENDORSED PT TO HOSPICE MANAGER NURSE FOR CONTINUITY OF CARE. ALL NEEDS MET THROUGHOUT SHIFT. PT IS IN STABLE CONDITION.
--- NOTE | 2022-07-19 19:40 | NUR ---
RECEIVED PATIENT LYING ON THE BED, IS AWAKE, ALERT AND ORIENTED. BREATHING EVEN AND NON LABORED ON 2LPM NC, DENIES PAIN. IV ACCESS SITE ON LEFT AC G18, PATENT AND INTACT, RUNNING NS @60ML/HR. CALL LIGHT WITHIN REACH, BED IN LOW AND LOCKED POSITION.
[2022-07-19 20:00] VITALS: BP 137/86
--- NOTE | 2022-07-20 01:59 | NUR ---
CHECK ON PATIENT. PATIENT IS ASLEEP, ON O2 @2LPM NC, NO SIGNS OF DISTRESS NOTED, NO SIGNS OF PAIN/DISCOMFORT NOTED. IV NS RUNNING @60ML/HR ON NEW ACCESS SITE ON LEFT HAND. CALL LIGHT WITHIN REACH. WILL CONTINUE TO MONITOR THE PATIENT.
[2022-07-20 04:00] VITALS: BP 124/72
[2022-07-20] MEDS: NACL 0.9% 1,000 ML IV SCH ×2 (04:40→12:09)
--- NOTE | 2022-07-20 07:23 | NUR ---
ENDORSED PATIENT TO DAY NURSE FOR CONTINUITY OF CARE. NEEDS MET THROUGHOUT THE SHIFT. PATIENT IS IN STABLE CONDITION.
[2022-07-20 07:48] LABS: BASOPHILS % (AUTO) 0.3 % (0.0-2.0); EOSINOPHILS # (AUTO) 0.2 K/uL (0-0.4); EOSINOPHILS % (AUTO) 4.4 % (0.0-4.0); HEMATOCRIT 34.1 % (36-52); HEMOGLOBIN 11.7 g/dL (12.0-18.0); LYMPHOCYTES # (AUTO) 1.7 K/uL (2.0-11.5); LYMPHOCYTES % (AUTO) 33.1 % (20.5-51.1); MEAN CORPUSCULAR HEMOGLOBIN 31 pg (27-31); MEAN CORPUSCULAR HGB CONC 34 g/dL (33-37); MEAN CORPUSCULAR VOLUME 89.4 fL (80-94); NEUTROPHILS # (AUTO) 2.2 K/uL (1.8-7.7); NEUTROPHILS % (AUTO) 43.2 % (42.2-75.2); PLATELET COUNT (AUTO) 219 K/uL (140-450); RED BLOOD CELL COUNT(AUTO) 3.81 MIL/uL (4.20-6.10); RED CELL DISTRIBUTION WIDTH 13.5 % (11.6-13.7); WHITE BLOOD COUNT (AUTO) 5.1 K/uL (4.8-10.8)
--- NOTE | 2022-07-20 07:50 | NUR ---
07/20/2022 0800: PT RECEIVED FROM PM SHIFT. PT RESTING IN BED NO ACUTE DISTRESS NOTED AT THIS TIME. [id number].
[2022-07-20 08:00] VITALS: BP 115/75
[2022-07-20 08:15] LABS: ANION GAP 14.3 (8-16); CARBON DIOXIDE 23.9 mmol/L (21-32); CHLORIDE 104 mmol/L (98-107); CREATININE 0.6 mg/dL (0.6-1.3); GLUCOSE 76 mg/dL (74-106); POTASSIUM 3.2 mmol/L (3.5-5.1); SODIUM SERUM 139 mmol/L (136-145); UREA NITROGEN, BLOOD 12 mg/dL (7-18)
[2022-07-20] MEDS: TERAZOSIN 1 MG CAP PO SCH (09:00)
[2022-07-20 12:00] VITALS: BP 112/69
[2022-07-20] MEDS: POTASSIUM CHLORIDE 10 MEQ TABER PO PRN (12:06)
[2022-07-20 16:00] VITALS: BP 125/61
--- NOTE | 2022-07-20 18:53 | NUR ---
PT OFF FLOOR TO CT. [id number].
--- NOTE | 2022-07-20 19:13 | NUR ---
PT BACK FROM CT. TOLERATED WELL. [id number].
--- NOTE | 2022-07-20 19:23 | NUR ---
RECEIVED REPORT FROM DAY SHIFT NURSE ZULEIKA FOR CONTINUITY OF CARE. PT AWAKE, IN BED. RESPIRATIONS EVEN AND UNLABORED ON 2L NC. IV SITE ON RIGHT HAND 18G, RUNNING IVF. SKIN INTACT, WARM AND DRY TO TOUCH. CALL LIGHT WITHIN REACH. SAFETY PRECAUTIONS IN PLACE.
--- NOTE | 2022-07-20 19:39 | NUR ---
07/20/2022 1900: ENDORSED TO PM SHIFT NELA GUPTA. [id number].
[2022-07-20 20:00] VITALS: BP 124/72
--- NOTE | 2022-07-20 20:41 | NUR ---
PATIENT HAS BEEN SCREENED AND CATEGORIZED HIGH NUTRITION RISK. PATIENT WILL BE SEEN WITHIN 1-2 DAYS OF ADMISSION. 07/18/22-07/20/[address] [facility] REFERRAL RECEIVED FOR UNINTENTIONAL WT LOSS, LOW APPETITE, AND NAUSEA OVER 3 DAYS
--- NOTE | 2022-07-20 22:30 | NUR ---
MAG FREDRICKER 2GRAM ADMINISTERED VIA IVPB OVER 2 HOURS. .
--- NOTE | 2022-07-20 23:09 | NUR ---
07/20/22 RD INITIAL ASSESSMENT COMPLETED. PLEASE REFER TO NUTRITION ASSESSMENT UNDER CARE ACTIVITY FOR ESTIMATED NUTRITIONAL NEEDS. 1.RECOMMEND CARDIAC DIET TOLERATED 2.MONITOR PO INTAKE 3.MONITOR GI SYMPTOMS 4. RD TO FOLLOW-UP 3-5 DAYS, MODERATE RISK PRISCA RIVERA, RD
[2022-07-21 04:00] VITALS: BP 140/75
--- NOTE | 2022-07-21 04:00 | NUR ---
V/S TAKEN. CHANGED AND CLEANED PT. NO BM. PT REMAINED CLEAN AND DRY. NO DISTRESS NOTED. NO C/O OF PAIN. SAFETY PRECAUTIONS IN PLACE.
[2022-07-21 06:40] LABS: BASOPHILS % (AUTO) 0.5 % (0.0-2.0); EOSINOPHILS # (AUTO) 0.3 K/uL (0-0.4); EOSINOPHILS % (AUTO) 5.5 % (0.0-4.0); HEMATOCRIT 33.7 % (36-52); HEMOGLOBIN 11.7 g/dL (12.0-18.0); LYMPHOCYTES # (AUTO) 1.8 K/uL (2.0-11.5); MEAN CORPUSCULAR HEMOGLOBIN 31 pg (27-31); MEAN CORPUSCULAR HGB CONC 35 g/dL (33-37); MEAN CORPUSCULAR VOLUME 89.3 fL (80-94); MONOCYTES # (AUTO) 0.8 K/uL (0.8-1.0); MONOCYTES % (AUTO) 17.1 % (1.7-9.3); NEUTROPHILS # (AUTO) 1.8 K/uL (1.8-7.7); NEUTROPHILS % (AUTO) 37.9 % (42.2-75.2); PLATELET COUNT (AUTO) 217 K/uL (140-450); RED BLOOD CELL COUNT(AUTO) 3.78 MIL/uL (4.20-6.10); RED CELL DISTRIBUTION WIDTH 13.5 % (11.6-13.7); WHITE BLOOD COUNT (AUTO) 4.7 K/uL (4.8-10.8)
--- NOTE | 2022-07-21 07:18 | NUR ---
ENDORSED PT TO DAY SHIFT NURSE ADZE FOR CONTINUITY OF CARE. ALL NEEDS MET THROUGHOUT SHIFT. PT IS IN STABLE CONDITION.
[2022-07-21 07:27] LABS: ANION GAP 13.6 (8-16); CARBON DIOXIDE 24.8 mmol/L (21-32); CHLORIDE 104 mmol/L (98-107); CREATININE 0.5 mg/dL (0.6-1.3); GLUCOSE 76 mg/dL (74-106); POTASSIUM 3.4 mmol/L (3.5-5.1); SODIUM SERUM 139 mmol/L (136-145); UREA NITROGEN, BLOOD 9 mg/dL (7-18)
[2022-07-21] MEDS: TERAZOSIN 1 MG CAP PO SCH (09:15)
[2022-07-21] MEDS: POTASSIUM CHLORIDE 10 MEQ TABER PO PRN (09:16)
[2022-07-21] MEDS: MAG SULF 2000 MG/WATER PREMIX 50 ML IV PRN (11:34)
[2022-07-21] MEDS: NACL 0.9% 1,000 ML IV SCH (14:00)
[2022-07-21] MEDS ORDERED: OMEP-303 PO (14:06)
[2022-07-21 14:22] VITALS: BP 135/75
--- NOTE | 2022-07-21 14:23 | NUR ---
PT. WITH LOW MARILEE SCALE AT MODERATE TO HIGH RISK, CONTINUE TO FOLLOW PRESSURE INJURY PREVENTION INTERVENTIONS. -POSITIONING: TURN AND REPOSITION PATIENT Q 2H OR SOONER USE PILLOWS TO KEEP BONY PROMINENCES FROM DIRECT CONTACT WITH SURFACES USE REPOSITIONING WEDGES TO PROVIDE 30-DEGREE ANGLE FOR SIDE LYING POSITIONS OFFLOADING OR FOAM DRESSING TO ALL TUBING TO PREVENT MEDICAL DEVICES RELATED PRESSURE INJURY -RE-EVALUATING AND MANAGING INCONTINENCE MONITOR SKIN CONDITION DURING POSITION CHANGE DO NOT MASSAGE REDNESS, BONY PROMINENCES FREQUENT LEONID-CARE AND PROVIDE BARRIER CREAMS PRN IF SOILING MOISTURE CONTROL BY OFFER BED KVEIN/URINAL /ABSORBENT PAD TO WICK AND HOLD MOISTURE KEEP SKIN DRY AND PROTECT FROM FRICTION -MANAGE FRICTION/SHEAR/MOBILITY KEEP HOB AT THE LOWEST LEVEL OF ELEVATION NO MORE THAN 30 DEGREE UNLESS OTHERWISE CONTRAINDICATED USE LIFT SHEET OR TRANSFER DEVICE TO MOVE PATIENT AND PREVENT LATERAL SHEER. PROTECT HEELS, ELBOWS BONY PROMINENCES WITH SKIN BERRIES OR FOAM DRESSING IF EXPOSED TO FRICTION OFFLOAD BILATERAL HEELS BY PLACING PILLOWS UNDER CALVES AT ALL TIMES, UNLESS OTHERWISE CONTRAINDICATED -PRESSURE REDISTRIBUTION SURFACE THERAPY MARQUIS ISOFLEX MATTRESS -NUTRITION: PLEASE FOLLOW RD RECOMMENDATIONS AND OFFER NUTRITION SUPPLEMENTS IF ORDERED. PLEASE CONTACT WOUND CARE NURSE FOR ANY QUESTION AND CHANGE OF WOUND CONDITION.
--- NOTE | 2022-07-21 15:16 | NUR ---
DC PLANNING FAMILY REQUESTING TO SPEAK TO SW. FAMILY INQUIRING ON SNF VS HH. SW PROVIDED FAMILY ( STEVEN MILLARD, HAWA MILLARD, RICHARD ECHEVARRIA AND LORI ECHEVARRIA) WITH INFORMATION ON BOTH AND REPORTED TO FAMILY THAT SNF PLACEMENT WAS RECOMMENDED BY PHYSICIAN AND PHYSICAL THERAPIST . FAMILY DECLINING SNF PLACEMENT AND REPORTS THEY WANT TO TAKE PT HOME WITH HH. SW ENDORSED TO REFERRAL PACKET SENT TO [facility]. FIELDED CALL FROM [facility] WHO REPORTS PT IS CURRENTLY ON HH SERVICES WITH [facility]. OUTREACHED TO PTS FAMILY TO CONFIRM THEY WERE CURRENTLY ON HH SERVICES WITH [facility]. REFERRAL PACKET SENT TO [facility],
--- NOTE | 2022-07-21 16:30 | NUR ---
PATIENT DISCHARGED HOME WITH FAMILY. PERSONAL BELONGINGS SENT HOME. STABLE UPON DISCHARGE.
== END 2022-07-21 16:20 | disposition home or self-care (01) | DRG 641 ==
LOC: MED 11:08 → MTU 13:31
PROVIDERS: ADMIT Family Medicine; ATTEND Family Medicine
DX: E86.0 Dehydration (principal); E44.1 Mild protein-calorie malnutrition; E87.6 Hypokalemia; Z20.822 Contact with and (suspected) exposure to COVID-19; N40.0 Benign prostatic hyperplasia without lower urinary tract symptoms; I25.10 Atherosclerotic heart disease of native coronary artery without angina pectoris; I10 Essential (primary) hypertension; Z68.36 Body mass index [BMI] 36.0-36.9, adult
CPT/HCPCS: 36415; 70450; 71045; 74150; 80048; 80053; 81003; 83735; 84484; 85025; 87081; 93005; 96374; 97110; 97116; 97163-GP; 97530; 99285; J3475; J3480

== ENCOUNTER 2023-07-01 15:26 | Emergency (ER) | payer OTHER ==
[~2023-07-01] VITALS: Ht 165.1 cm; Wt 70.3 kg
[~2023-07-01 15:26] MED LIST changes: +CARV3.12 PO; +OMEP-303 PO
[2023-07-01 16:10] VITALS: BP 124/77; PULSE 80; RESP 16; TEMP 98.3; O2SAT 95
[2023-07-01 21:16] VITALS: BP 134/74; PULSE 83; RESP 16; TEMP 97.6; O2SAT 98
== END 2023-07-01 21:16 | disposition home or self-care (01) ==
LOC: MED 15:26
DX: K94.23 Gastrostomy malfunction (principal); I10 Essential (primary) hypertension; Z79.899 Other long term (current) drug therapy; Z98.890 Other specified postprocedural states
CPT/HCPCS: 99281